=== PATIENT | male | born 1970 | race Caucasian/White ===

== ENCOUNTER 2019-01-14 16:43 | Inpatient (IN) ==
[2019-01-14] MEDS ORDERED: Mag Hydrox/Al Hydrox/Simeth 30 ML UDC PO PRN (18:39)
[2019-01-14] MEDS ORDERED: Nitroglycerin 0.4 MG TAB.SUBL SL PRN (18:39)
[2019-01-14] MEDS ORDERED: *HR* OxyCODONE/APAP 5/325 TABLET PO PRN (18:39)
[2019-01-14] MEDS ORDERED: traZODone 50 MG TABLET PO PRN (20:00)
[2019-01-14] MEDS: Budesonide/Formoterol 80/4.5 MDI IH SCH (20:34)
[2019-01-14] MEDS: Gabapentin 400 MG CAPSULE PO SCH (21:51)
[2019-01-14] MEDS: Methocarbamol 500 MG TABLET PO SCH (22:01)
[2019-01-14] MEDS: Ipratropium/Albuterol Neb 3 ML IH SCH (23:30)
[2019-01-15] MEDS: *HR* OxyCODONE/APAP 5/325 TABLET PO PRN ×4 (02:48→16:46)
[2019-01-15] MEDS: Ipratropium/Albuterol Neb 3 ML IH SCH (05:28)
[2019-01-15 07:50] LABS: Basophils % 0.5 %; Eosinophils # 0.1 K/mcL (0.0-0.6); Eosinophils % 1.6 %; Hematocrit 39.6 % (37.5-50.1); Hemoglobin 13.4 g/dL (12.9-16.9); Immature Granulocytes % 0.5 % (0-4); Lymphocytes # 1.2 K/mcL (0.6-4.6); Lymphocytes % 20.9 %; Mean Corpuscular HGB Conc 33.8 g/dL (31.6-35.5); Mean Corpuscular Hemoglobin 31.5 pg (28.0-33.3); Mean Platelet Volume 10.2 fL (9.4-12.4); Monocytes # 0.5 K/mcL (0.0-1.3); Monocytes % 9.2 %; Neutrophils # 3.9 K/mcL (1.6-8.9); Platelet Count 170 K/mcL (140-400); Red Blood Count 4.26 M/mcL (4.19-5.50); Red Cell Distribution Width 14.3 % (11.5-14.5); Segmented Neutrophils % 67.3 %
[2019-01-15 07:59] LABS: INR 1.2; Prothrombin Time 13.8 Seconds (9.4-12.1)
[2019-01-15] MEDS ORDERED: Tiotropium 18 MCG inhalation IH SCH (08:00)
[2019-01-15] MEDS ORDERED: Multivit/Ca/Min/Fe/FA 1 TAB TABLET PO SCH (08:00)
[2019-01-15] MEDS ORDERED: Iron Polysaccharide Complex 150 MG CAPSULE PO SCH (08:00)
[2019-01-15] MEDS ORDERED: Aspirin Enteric Coated 81 MG Tablet PO SCH (08:00)
[2019-01-15] MEDS ORDERED: Sucralfate 1 GM TABLET PO SCH (08:00)
[2019-01-15] MEDS ORDERED: Folic Acid 1 MG TABLET PO SCH (08:00)
[2019-01-15] MEDS ORDERED: Furosemide 20 MG TABLET PO SCH (08:00)
[2019-01-15] MEDS ORDERED: (Fluticasone/Vilanterol [Breo Ellipta 100-25 Mcg Inh] PO SCH (08:00)
[2019-01-15] MEDS: Gabapentin 400 MG CAPSULE PO SCH ×3 (08:15→16:45)
[2019-01-15] MEDS: Budesonide/Formoterol 80/4.5 MDI IH SCH ×3 (08:16→22:30)
[2019-01-15] MEDS: Methocarbamol 500 MG TABLET PO SCH ×4 (08:16→21:12)
[2019-01-15] MEDS: Sucralfate 1 GM TABLET PO SCH ×2 (08:29→16:46)
[2019-01-15] MEDS: Iron Polysaccharide Complex 150 MG CAPSULE PO SCH (08:29)
[2019-01-15] MEDS: Aspirin Enteric Coated 81 MG Tablet PO SCH (08:29)
[2019-01-15] MEDS: Furosemide 20 MG TABLET PO SCH (08:30)
[2019-01-15] MEDS: Folic Acid 1 MG TABLET PO SCH (08:30)
[2019-01-15] MEDS ORDERED: traZODone 50 MG TABLET PO PRN (08:30)
[2019-01-15] MEDS: Multivit/Ca/Min/Fe/FA 1 TAB TABLET PO SCH (08:31)
[2019-01-15 08:42] LABS: BUN/Creatinine Ratio 14 (6-26); Blood Urea Nitrogen 13 mg/dL (6-20); Calcium 9.2 mg/dL (8.6-10.3); Carbon Dioxide 28 mEq/L (23-29); Chloride 102 mEq/L (98-107); Glucose 101 mg/dL (70-105); Osmolality,Calculated 282 (280-300); Potassium 4.2 mEq/L (3.5-5.1); Sodium 136 mEq/L (136-145); eGFR For Non-African Americans > 60 (> 60)
[2019-01-15] MEDS: Tiotropium 18 MCG inhalation IH SCH (11:28)
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
[2019-01-15] MEDS: *HR* OxyCODONE ER (12 HR) 10 MG TABLET PO SCH (18:34)
[2019-01-15] MEDS: Gabapentin 300 MG CAPSULE PO SCH (21:11)
[2019-01-16] MEDS: *HR* OxyCODONE ER (12 HR) 10 MG TABLET PO SCH ×4 (00:11→23:46)
[2019-01-16] MEDS: Sucralfate 1 GM TABLET PO SCH ×2 (08:10→16:29)
[2019-01-16] MEDS: Aspirin Enteric Coated 81 MG Tablet PO SCH (08:11)
[2019-01-16] MEDS: Iron Polysaccharide Complex 150 MG CAPSULE PO SCH (08:11)
[2019-01-16] MEDS: Methocarbamol 500 MG TABLET PO SCH ×3 (08:12→20:16)
[2019-01-16] MEDS: Folic Acid 1 MG TABLET PO SCH (08:12)
[2019-01-16] MEDS: Multivit/Ca/Min/Fe/FA 1 TAB TABLET PO SCH (08:12)
[2019-01-16] MEDS: Gabapentin 300 MG CAPSULE PO SCH ×3 (08:12→20:16)
[2019-01-16] MEDS: Furosemide 20 MG TABLET PO SCH (08:12)
[2019-01-16 09:14] LABS: Uric Acid 6.2 mg/dL (2.3-7.6)
[2019-01-16 09:53] LABS: Folate 11.8 ng/mL (3.0-16.0)
[2019-01-16 09:54] LABS: Hepatitis B Surface Antigen Nonreactive (Nonreactive)
[2019-01-16 10:22] LABS: Hepatitis C Virus Antibody Nonreactive (Nonreactive)
[2019-01-16 10:23] LABS: Hepatitis B Core IgM Nonreactive (Nonreactive)
[2019-01-16 10:25] LABS: Hepatitis A Antibody IgM Nonreactive (Nonreactive)
--- NOTE | 2019-01-16 11:12 | Internal Med Progress Note ---
Date of Encounter: 01/16/19 Time of Encounter: 11:00 - Assessment and plan (1) Hematoma of abdominal wall Current Visit: No Status: Acute Assessment and plan: January 16. He agrees to restart Coumadin. Factor V Leiden deficiency result pending Qualifiers: Encounter type: initial encounter Qualified Code(s): S30.1XXA - Contusion of abdominal wall, initial encounter (2) Cirrhosis Current Visit: Yes Status: Acute Assessment and plan: January 16. Hepatitis ABC profile negative. Continue to monitor labs. Qualifiers: Hepatic cirrhosis type: unspecified hepatic cirrhosis Ascites presence: without ascites Qualified Code(s): K74.60 - Unspecified cirrhosis of liver (3) RLS (restless legs syndrome) Current Visit: Yes Status: Acute Assessment and plan: January 16. Iron profile showed iron 65, transferrin saturation 17 %, transferrin 266, and ferritin 39. Will start trial of ferrous sulfate with ascorbic acid in a.m. Continue lower dose gabapentin (4) Hyperuricemia Current Visit: Yes Status: Acute Assessment and plan: January 16. Uric acid level normal at 6.2. (5) DVT (deep venous thrombosis) Current Visit: No Status: Acute Assessment and plan: January 16. Restart Coumadin. Qualifiers: DVT location: lower extremity Affected thrombotic vein of extremity: unspecified vein of extremity Chronicity: unspecified Laterality: unspecified laterality Qualified Code(s): I82.409 - Acute embolism and thrombosis of unspecified deep veins of unspecified lower extremity (6) Atrial fibrillation Current Visit: No Status: Chronic Assessment and plan: January 16. Restart Coumadin. Qualifiers: Atrial fibrillation type: paroxysmal Qualified Code(s): I48.0 - Paroxysmal atrial fibrillation - Subjective Interval history: January 16. He has no new complaints. He states he is in less pain since changing from oxycodone IR to OxyContin. - Constitutional Vitals: Temp Pulse Resp BP Pulse Ox 98.6 F 77 16 134/85 99 01/16/19 07:02 01/16/19 07:02 01/16/19 07:02 01/16/19 07:02 01/16/19 07:02 Exam: He is resting comfortably on the side of bed and appears in no acute distress. His affect is cheerful. I reviewed his medications and lab results. Internal Medicine: Result - Labs CBC & Chem 7: 01/15/19 07:31 01/15/19 07:31 - ABG Interpretation ABG results: PT/INR, D-dimer PT 13.8 Seconds (9.4-12.1) H 01/15/19 07:31 Consult Discharge Plan - Plan Referrals: Carlos Ward DO [Primary Care Provider] - 1 week
[2019-01-16] MEDS: Budesonide/Formoterol 80/4.5 MDI IH SCH ×2 (11:30→22:35)
[2019-01-16] MEDS: Tiotropium 18 MCG inhalation IH SCH (11:30)
[2019-01-16] MEDS: *HR* Warfarin 5 MG TABLET PO SCH (16:29)
[2019-01-16] MEDS ORDERED: Ondansetron ODT 4 MG TAB.RAPDIS SL PRN (16:38)
[2019-01-17] MEDS: Ascorbic Acid 500 MG TABLET PO SCH (06:22)
[2019-01-17] MEDS: *HR* OxyCODONE ER (12 HR) 10 MG TABLET PO SCH ×3 (08:46→23:47)
[2019-01-17] MEDS: Sucralfate 1 GM TABLET PO SCH ×2 (08:46→16:33)
[2019-01-17] MEDS: Gabapentin 300 MG CAPSULE PO SCH ×3 (08:47→20:38)
[2019-01-17] MEDS: Folic Acid 1 MG TABLET PO SCH (08:47)
[2019-01-17] MEDS: Aspirin Enteric Coated 81 MG Tablet PO SCH (08:47)
[2019-01-17] MEDS: Methocarbamol 500 MG TABLET PO SCH ×3 (08:48→20:37)
[2019-01-17] MEDS: Multivit/Ca/Min/Fe/FA 1 TAB TABLET PO SCH (08:48)
[2019-01-17] MEDS: Budesonide/Formoterol 80/4.5 MDI IH SCH ×2 (09:51→22:42)
[2019-01-17] MEDS: Tiotropium 18 MCG inhalation IH SCH (09:53)
--- NOTE | 2019-01-17 15:12 | Discharge Summary ---
Orders not resulted at time of discharge: Pending orders 01/16/19 07:35 Factor V Leiden Routine Date of Encounter: 01/17/19 Time of Encounter: 14:54 - Discharge Diagnosis (1) Hematoma of abdominal wall Priority: Primary Status: Acute Qualifiers: Encounter type: initial encounter Qualified Code(s): S30.1XXA - Contusion of abdominal wall, initial encounter (2) Cirrhosis Priority: Secondary Status: Chronic Qualifiers: Hepatic cirrhosis type: unspecified hepatic cirrhosis Ascites presence: without ascites Qualified Code(s): K74.60 - Unspecified cirrhosis of liver (3) RLS (restless legs syndrome) Priority: Secondary Status: Chronic (4) Hyperuricemia Priority: Secondary Status: Resolved (5) DVT (deep venous thrombosis) Priority: Secondary Status: Acute Qualifiers: DVT location: lower extremity Affected thrombotic vein of extremity: unspecified vein of extremity Chronicity: unspecified Laterality: unspecified laterality Qualified Code(s): I82.409 - Acute embolism and thrombosis of unspecified deep veins of unspecified lower extremity (6) Atrial fibrillation Priority: Secondary Status: Chronic Qualifiers: Atrial fibrillation type: paroxysmal Qualified Code(s): I48.0 - Paroxysmal atrial fibrillation Hospital course: Mr. Haile is a 49 year old male who was hospitalized at [facility] January 05- after presenting with chest and abdominal pain. Abdominal/pelvic CT scan 01/06/2019 showed 12.3 x 5.3 x 3.5 cm left rectus sheath hematoma. Abdominal ultrasound the following day showed similar size 10.5 x 2.5 x 4.6 cm fluid collection. He was seen by surgeons who felt Coumadin can be restarted for diagnoses of atrial fibrillation, history of DVT, and possible factor V Leiden deficiency. The hannah calixto declined restarting Coumadin at that time because of fear of further hemorrhage into the rectus muscle. There was delay in insurance approval to return to [facility] in [place]. He was admitted to [facility] swing bed for ongoing care needs. I saw him on January 15 and performed a swing bed history and physical. I discussed with him the importance of being on OAC. He agreed to start Coumadin. Factor V Leiden was ordered with results pending at time of discharge. He should remain on lifelong Coumadin. His PCP can monitor INR. Hepatitis profile for hepatitis A, B, and C returned negative. The etiology of his cirrhosis is not known. Gabapentin dose was reduced and Cymbalta was started for treatment of RLS. He had decreased edema on reduced dose gabapentin. Iron profile returned showing iron 65, transferrin saturation 17%, transferrin 266, and ferritin 39. B12 and folate were normal at 283 and 11.8 respectively. He was started on ferrous sulfate with ascorbic acid. His PCP can order MMA to further determine his B12 status. Vitamin D level returned low at 27. He will be started on a vitamin D supplement. Uric acid level returned normal at 6.2. Oxycodone IR/Percocet were discontinued and he was started on OxyContin 10 mg every 8 hours. This seemed to improve his pain control. He will remain on this dose at discharge. On January 17 word was received that Medicaid had approved his return to [facility] for ongoing care needs. He will be discharged there in follow with Dr. Massey. - Time Spent with Patient Total time spent providing and/or coordinating discharge services: - Discharge Medications Prescriptions: New Penicillin VK 500 mg PO Q6HR 5 Days tablet OxyCODONE ER (12 HR) [OxyCONTIN] 10 mg PO Q8HR 7 Days #21 tab.er.12h Ascorbic Acid [Vitamin C] 500 mg PO DAILY@0630 tablet DULoxetine [Cymbalta] 30 mg PO DAILY capsule. Ferrous Sulfate 325 mg PO DAILY@0630 tablet Gabapentin [Neurontin] 400 mg PO TID 30 Days #90 capsule Warfarin [Coumadin] 7.5 mg PO DAILY@1800 tablet Omeprazole [PriLOSEC] 20 mg PO BIDAC capsule. Cholecalciferol (D-3) [Vitamin D] 1,000 unit PO DAILY 365 Days tablet Continue Aspirin [Lo-Dose Aspirin EC] 81 mg PO 0800 Tamsulosin [Flomax] 0.4 mg PO 0800 Nitroglycerin [Nitrostat] 0.4 mg SL Q5MIN PRN PRN Reason: Chest Pain Methocarbamol [Robaxin] 500 mg PO 0800,1600,2000 Metoprolol [Lopressor] 50 mg PO 0800,2000 Lidocaine Patch [Lidoderm 5% patch] 1 patch TP 2000 PRN PRN Reason: Mild Pain Folic Acid 0.8 mg PO 0800 Trazodone HCl 50 mg PO 2000 PRN PRN Reason: Sleep Nortriptyline [Pamelor] 10 mg PO 2000 Fluticasone/Vilanterol [Breo Ellipta 100-25 Mcg INH] 25 mcg PO 0800 Tiotropium [Spiriva] 1 puff IH 0800 Sucralfate [Carafate] 1 gm PO 0800,1600 Polyethylene Glycol 3350 [MiraLAX] 17 gm PO 1600 PRN PRN Reason: Constipation Mag Hydrox/Aluminum Hyd/Simeth [Cvs Antacid Plus Anti-Gas Liq] 15 ml PO Q4H PRN PRN Reason: Heartburn HydrOXYzine 10 mg PO TID PRN PRN Reason: Anxiety Albuterol Sulfate [Proair Respiclick] 2 puff IH Q4H PRN PRN Reason: Dyspnea Atorvastatin [Lipitor] 40 mg PO 1999 Buspirone HCl [Buspar] 15 mg PO 0800,1599,1999 Fluticasone/Salmeterol [Advair 250-50 Diskus] 1 each IH 0800,1999 Multivitamin [Daily Multiple Vitamin] 1 each PO 0800 Dicyclomine [Bentyl] 10 mg PO QID Buspirone HCl [Buspar] 15 mg PO TID tablet Nortriptyline [Pamelor] 10 mg PO DAILY capsule Docusate [Colace] 100 mg PO BID PRN capsule PRN Reason: CONSTIPATION Changed Furosemide [Lasix] 20 mg PO Q48H #0 Discontinued Omeprazole [PriLOSEC] 40 mg PO 0800,1600 Iron Polysaccharide Complex [Pro Fe] 180 mg PO 0800 Ipratropium/Albuterol Sulfate [Iprat-Albut 0.5-3(2.5) mg/3 ml] 3 ml IH 0500,1100,1700,2300 Gabapentin [Neurontin] 800 mg PO 0800,1600,1999 Oseltamivir [Tamiflu] 75 mg PO 1600 OxyCODONE/APAP 5/325 [Percocet 5/325 MG] 1 each PO Q6H PRN PRN Reason: Pain Home Medications: Aspirin [Lo-Dose Aspirin EC] 81 mg PO 0800 03/22/17 [History] Methocarbamol [Robaxin] 500 mg PO 0800,1600,199906/03/18 [History] Nitroglycerin [Nitrostat] 0.4 mg SL Q5MIN PRN 06/03/18 [History] Tamsulosin [Flomax] 0.4 mg PO 0800 06/03/18 [History] Lidocaine Patch [Lidoderm 5% patch] 1 patch TP 1999 PRN 06/04/18 [History] Metoprolol [Lopressor] 50 mg PO 0800,199906/04/18 [History] Folic Acid 0.8 mg PO 0800 11/02/18 [History] Trazodone HCl 50 mg PO 1999 PRN 11/02/18 [History] Nortriptyline [Pamelor] 10 mg PO 199912/14/18 [History] Fluticasone/Vilanterol [Breo Ellipta 100-25 Mcg INH] 25 mcg PO 0800 01/06/19 [History] HydrOXYzine 10 mg PO TID PRN 01/06/19 [History] Mag Hydrox/Aluminum Hyd/Simeth [Cvs Antacid Plus Anti-Gas Liq] 15 ml PO Q4H PRN 01/06/19 [History] Polyethylene Glycol 3350 [MiraLAX] 17 gm PO 1600 PRN 01/06/19 [History] Sucralfate [Carafate] 1 gm PO 0800,1600 01/06/19 [History] Tiotropium [Spiriva] 1 puff IH 0800 01/06/19 [History] Albuterol Sulfate [Proair Respiclick] 2 puff IH Q4H PRN 01/07/19 [History] Atorvastatin [Lipitor] 40 mg PO 199901/07/19 [History] Buspirone HCl [Buspar] 15 mg PO 0800,1600,199901/07/19 [History] Dicyclomine [Bentyl] 10 mg PO QID 01/07/19 [History] Fluticasone/Salmeterol [Advair 250-50 Diskus] 1 each IH 0800,199901/07/19 [History] Multivitamin [Daily Multiple Vitamin] 1 each PO 0800 01/07/19 [History] Buspirone HCl [Buspar] 15 mg PO TID tablet 01/10/19 [Rx] Docusate [Colace] 100 mg PO BID PRN capsule 01/10/19 [Rx] Nortriptyline [Pamelor] 10 mg PO DAILY capsule 01/10/19 [Rx] Ascorbic Acid [Vitamin C] 500 mg PO DAILY@0630 tablet 01/17/19 [Rx] Cholecalciferol (D-3) [Vitamin D] 1,000 unit PO DAILY 365 Days tablet 01/17/19 [Rx] DULoxetine [Cymbalta] 30 mg PO DAILY capsule. 01/17/19 [Rx] Ferrous Sulfate 325 mg PO DAILY@0630 tablet 01/17/19 [Rx] Furosemide [Lasix] 20 mg PO Q48H #0 01/17/19 [Rx] Gabapentin [Neurontin] 400 mg PO TID 30 Days #90 capsule 01/17/19 [Rx] Omeprazole [PriLOSEC] 20 mg PO BIDAC capsule. 01/17/19 [Rx] OxyCODONE ER (12 HR) [OxyCONTIN] 10 mg PO Q8HR 7 Days #21 tab.er.12h 01/17/19 [Rx] Penicillin VK 500 mg PO Q6HR 5 Days tablet 01/17/19 [Rx] Warfarin [Coumadin] 7.5 mg PO DAILY@1800 tablet 01/17/19 [Rx] Allergies/Adverse Reactions: Allergy/AdvReac Type Severity Reaction Status Date / Time acetaminophen [From Tylenol] Allergy See Verified 01/07/19 09:27 Comments ibuprofen Allergy See Verified 01/07/19 09:27 Comments vancomycin Allergy "REDMEN Verified 01/07/19 09:21 SYNDROME" amitriptyline [From Elavil] AdvReac "KNOCKED Verified 01/07/19 09:21 OUT" baclofen AdvReac Headache Verified 01/07/19 09:21 tramadol [From Ultram] AdvReac Itching, Verified 01/07/19 09:21 RED HIVES venlafaxine [From Effexor] AdvReac NIGHTMARES Verified 01/07/19 09:21 Date of admission: 01/14/19 18:35 Primary care physician: Carlos Ward DO Consults: 01/14/19 16:46 Consult to Cardiac Exercise Physiologist [CONS] Routine Reason for SW Consult: discharge planning 01/14/19 16:49 Consult to Physical Therapy [CONS] Routine Comment: Evaluate, develop and implement POC Reason for Consult: weakness Does patient have active BEDREST order?: No Is patient medically & hemodynamically stable?: Yes Patient assessed for mobility or mobilized this visit?: No OT [Consult to Occupational Therapy] [CONS] Routine Comment: Evaluate, develop and implement POC Reason for Consult: weakness Does patient have active BEDREST order?: No Is patient medically & hemodynamically stable?: Yes Patient assessed for mobility or mobilized this visit?: No - Constitutional Vitals: Temp Pulse Resp BP Pulse Ox 98.2 F 71 16 103/65 91 01/17/19 07:25 01/17/19 07:25 01/17/19 09:51 01/17/19 07:25 01/17/19 09:51 - Patient Status Disposition: Transfer SNF - Discharge Instructions - Diet and Activity Activity: resume usual activities as tolerated Diet: advance to your usual diet
--- NOTE | 2019-01-17 15:24 | Physician Discharge Referral ---
[facility] Referral Info Transfer To: [facility] Provider in Charge: Rahat Provider in Charge after Transfer: PCP Ahsan) - Diagnosis (1) Hematoma of abdominal wall Priority: Primary Status: Acute (2) Cirrhosis Priority: Secondary Status: Chronic (3) RLS (restless legs syndrome) Priority: Secondary Status: Chronic (4) Hyperuricemia Priority: Secondary Status: Resolved (5) DVT (deep venous thrombosis) Priority: Secondary Status: Acute (6) Atrial fibrillation Priority: Secondary Status: Chronic Prognosis: Good Aware of Diagnosis: Patient Aware of Prognosis: Patient - Transfer Medications Prescriptions: OxyCODONE ER (12 HR) [OxyCONTIN] 10 mg PO Q8HR 7 Days #21 tab.er.12h Cholecalciferol (D-3) [Vitamin D] 1,000 unit PO DAILY 365 Days tablet Gabapentin [Neurontin] 400 mg PO TID 30 Days #90 capsule Home Medications: Aspirin [Lo-Dose Aspirin EC] 81 mg PO 0800 03/22/17 [History] Methocarbamol [Robaxin] 500 mg PO 0800,1600,199906/03/18 [History] Nitroglycerin [Nitrostat] 0.4 mg SL Q5MIN PRN 06/03/18 [History] Tamsulosin [Flomax] 0.4 mg PO 0800 06/03/18 [History] Lidocaine Patch [Lidoderm 5% patch] 1 patch TP 1999 PRN 06/04/18 [History] Metoprolol [Lopressor] 50 mg PO 0800,199906/04/18 [History] Folic Acid 0.8 mg PO 0800 11/02/18 [History] Trazodone HCl 50 mg PO 1999 PRN 11/02/18 [History] Nortriptyline [Pamelor] 10 mg PO 199912/14/18 [History] Fluticasone/Vilanterol [Breo Ellipta 100-25 Mcg INH] 25 mcg PO 0800 01/06/19 [History] HydrOXYzine 10 mg PO TID PRN 01/06/19 [History] Mag Hydrox/Aluminum Hyd/Simeth [Cvs Antacid Plus Anti-Gas Liq] 15 ml PO Q4H PRN 01/06/19 [History] Polyethylene Glycol 3350 [MiraLAX] 17 gm PO 1600 PRN 01/06/19 [History] Sucralfate [Carafate] 1 gm PO 0800,1600 01/06/19 [History] Tiotropium [Spiriva] 1 puff IH 0800 01/06/19 [History] Albuterol Sulfate [Proair Respiclick] 2 puff IH Q4H PRN 01/07/19 [History] Atorvastatin [Lipitor] 40 mg PO 199901/07/19 [History] Buspirone HCl [Buspar] 15 mg PO 0800,1600,199901/07/19 [History] Dicyclomine [Bentyl] 10 mg PO QID 01/07/19 [History] Fluticasone/Salmeterol [Advair 250-50 Diskus] 1 each IH 0800,199901/07/19 [History] Multivitamin [Daily Multiple Vitamin] 1 each PO 0800 01/07/19 [History] Buspirone HCl [Buspar] 15 mg PO TID tablet 01/10/19 [Rx] Docusate [Colace] 100 mg PO BID PRN capsule 01/10/19 [Rx] Nortriptyline [Pamelor] 10 mg PO DAILY capsule 01/10/19 [Rx] Ascorbic Acid [Vitamin C] 500 mg PO DAILY@0630 tablet 01/17/19 [Rx] Cholecalciferol (D-3) [Vitamin D] 1,000 unit PO DAILY 365 Days tablet 01/17/19 [Rx] DULoxetine [Cymbalta] 30 mg PO DAILY capsule. 01/17/19 [Rx] Ferrous Sulfate 325 mg PO DAILY@0630 tablet 01/17/19 [Rx] Furosemide [Lasix] 20 mg PO Q48H #0 01/17/19 [Rx] Gabapentin [Neurontin] 400 mg PO TID 30 Days #90 capsule 01/17/19 [Rx] Omeprazole [PriLOSEC] 20 mg PO BIDAC capsule. 01/17/19 [Rx] OxyCODONE ER (12 HR) [OxyCONTIN] 10 mg PO Q8HR 7 Days #21 tab.er.12h 01/17/19 [Rx] Penicillin VK 500 mg PO Q6HR 5 Days tablet 01/17/19 [Rx] Warfarin [Coumadin] 7.5 mg PO DAILY@1800 tablet 01/17/19 [Rx] Allergies/Adverse Reactions: Allergy/AdvReac Type Severity Reaction Status Date / Time acetaminophen [From Tylenol] Allergy See Verified 01/07/19 09:27 Comments ibuprofen Allergy See Verified 01/07/19 09:27 Comments vancomycin Allergy "REDMEN Verified 01/07/19 09:21 SYNDROME" amitriptyline [From Elavil] AdvReac "KNOCKED Verified 01/07/19 09:21 OUT" baclofen AdvReac Headache Verified 01/07/19 09:21 tramadol [From Ultram] AdvReac Itching, Verified 01/07/19 09:21 RED HIVES venlafaxine [From Effexor] AdvReac NIGHTMARES Verified 01/07/19 09:21 - Respiratory Orders Smoking Cessation: Smoking cessation has been advised. For more information, call the [employer] Quit Line at 1-330-GEVD-NOW. - Lab Orders Lab Orders: Other (include drug levels w/frequency) (CBC with differential, BMP, BNP peptide, PT/INR in a.m. 01/19/19) - Rehabiliation Orders Rehab Orders: Evaluation for Physical Therapy, Evaluation for Occupational Therapy - Diet Orders Cardiac CERTIFICATION: I certify that the transfer of the above named patient to an Extended Care Facility is necessary for the continuing treatment of the diagnosis listed. The above information is true and accurate reflection of patient's current condition. Confidential - Redisclosure prohibited without a patient's written consent.
[2019-01-17] MEDS: *HR* Warfarin 5 MG TABLET PO SCH (16:33)
[2019-01-18] MEDS: Ascorbic Acid 500 MG TABLET PO SCH (06:17)
[2019-01-18 06:58] VITALS: BP 127/69
[2019-01-18] MEDS: *HR* OxyCODONE ER (12 HR) 10 MG TABLET PO SCH (08:46)
[2019-01-18] MEDS: Folic Acid 1 MG TABLET PO SCH (08:47)
[2019-01-18] MEDS: Methocarbamol 500 MG TABLET PO SCH (08:47)
[2019-01-18] MEDS: Gabapentin 300 MG CAPSULE PO SCH (08:47)
[2019-01-18] MEDS: Aspirin Enteric Coated 81 MG Tablet PO SCH (08:47)
[2019-01-18] MEDS: Sucralfate 1 GM TABLET PO SCH (08:47)
[2019-01-18] MEDS: Multivit/Ca/Min/Fe/FA 1 TAB TABLET PO SCH (08:47)
[2019-01-18] MEDS: Tiotropium 18 MCG inhalation IH SCH (09:29)
[2019-01-18] MEDS: Budesonide/Formoterol 80/4.5 MDI IH SCH (09:29)
== END 2019-01-18 11:21 | DRG 384 ==
LOC: INPPIK 18:35
PROVIDERS: ADMIT Internal Medicine; ATTEND Internal Medicine

== ENCOUNTER 2021-01-18 22:39 | Inpatient (IN) ==
[2021-01-18] MEDS ORDERED: methylPREDNISolone 125 MG/2 ML VIAL IVP ONE (23:13)
[2021-01-18] MEDS ORDERED: Ipratropium/Albuterol Neb 3 ML IH ONE (23:13)
[2021-01-19 00:02] LABS: Basophils # 0.1 K/mcL (0.0-0.2); Basophils % 0.4 %; Eosinophils # 0.2 K/mcL (0.0-0.6); Eosinophils % 1.2 %; Hematocrit 34.1 % (37.5-50.1); Hemoglobin 11.5 g/dL (12.9-16.9); Immature Granulocytes % 0.7 % (0-4); Lymphocytes # 1.9 K/mcL (0.6-4.6); Lymphocytes % 11.2 %; Mean Corpuscular HGB Conc 33.7 g/dL (31.6-35.5); Mean Corpuscular Hemoglobin 30.7 pg (28.0-33.3); Mean Corpuscular Volume 90.9 fL (83.0-100.0); Mean Platelet Volume 10.6 fL (9.4-12.4); Monocytes # 1.8 K/mcL (0.0-1.3); Monocytes % 10.8 %; Neutrophils # 12.6 K/mcL (1.6-8.9); Platelet Count 155 K/mcL (140-400); Red Blood Count 3.75 M/mcL (4.19-5.50); Red Cell Distribution Width 15.3 % (11.5-14.5); Segmented Neutrophils % 75.7 %; White Blood Count 16.7 K/mcL (4.3-11.1)
[2021-01-19 00:03] LABS: ABG Base Excess 8 mEq/L (-2 to 3); ABG HCO3 35 mEq/L (21-27); ABG Oxygen Saturation 90 % (95-98); ABG PCO2 59 mmHg (35-45); ABG PH 7.38 pH Units (7.32-7.45); ABG PO2 62 mmHg (85-104); ABG TCO2 37 mEq/L (20-26)
[2021-01-19] MEDS ORDERED: Cefepime HCl 2,000 MG in 0.9 % Sodium Chloride Mini Bag 100 ML IVPB STA (00:19)
[2021-01-19] MEDS ORDERED: Azithromycin 500 MG in 0.9 % Sodium Chloride 250 ML IVPB ONE (00:19)
[2021-01-19 00:21] LABS: BUN/Creatinine Ratio 15 (6-26); Blood Urea Nitrogen 13 mg/dL (6-20); Calcium 8.6 mg/dL (8.6-10.3); Carbon Dioxide 34 mEq/L (23-29); Chloride 99 mEq/L (98-107); Glucose 77 mg/dL (70-105); Osmolality,Calculated 289 (280-300); Potassium 3.6 mEq/L (3.5-5.1); Sodium 140 mEq/L (136-145); eGFR For African Americans > 60 (> 60); eGFR For Non-African Americans > 60 (> 60)
[2021-01-19] MEDS ORDERED: Bumetanide 1 MG/4 ML VIAL IVP STA (00:21)
[2021-01-19 00:22] LABS: Troponin I < 0.03 ng/mL (< 0.04)
[2021-01-19] MEDS ORDERED: Naloxone 0.4 MG/ML INJ IVP PRN ×2 (01:38→02:57)
[2021-01-19] MEDS ORDERED: Ondansetron ODT 4 MG TAB.RAPDIS PO PRN ×2 (01:41→02:57)
[2021-01-19] MEDS ORDERED: *HR* Enoxaparin 150 MG/ML SYRINGE SQ SCH ×2 (01:45→13:45)
[2021-01-19] MEDS ORDERED: *HR* OxyCODONE ER (12 HR) 40 MG TABLET PO SCH (05:00)
[2021-01-19] MEDS ORDERED: Ipratropium Neb 0.5 MG NEBULIZER IH SCH ×2 (05:00)
[2021-01-19] MEDS: *HR* OxyCODONE ER (12 HR) 40 MG TABLET PO SCH ×2 (06:07→16:51)
[2021-01-19 07:49] LABS: Basophils % 0.2 %; Hematocrit 33.6 % (37.5-50.1); Hemoglobin 11.1 g/dL (12.9-16.9); Immature Granulocytes % 0.6 % (0-4); Lymphocytes # 0.6 K/mcL (0.6-4.6); Lymphocytes % 5.5 %; Mean Corpuscular Hemoglobin 30.1 pg (28.0-33.3); Mean Corpuscular Volume 91.1 fL (83.0-100.0); Monocytes # 0.2 K/mcL (0.0-1.3); Monocytes % 1.8 %; Platelet Count 133 K/mcL (140-400); Red Blood Count 3.69 M/mcL (4.19-5.50); Red Cell Distribution Width 15.5 % (11.5-14.5); Segmented Neutrophils % 91.9 %; White Blood Count 11.5 K/mcL (4.3-11.1)
[2021-01-19 07:50] LABS: Neutrophils # 10.6 K/mcL (1.6-8.9)
[2021-01-19] MEDS ORDERED: Sucralfate 1 GM TABLET PO SCH (08:00)
[2021-01-19] MEDS ORDERED: *HR* Metformin 500 MG TABLET PO SCH ×2 (08:00)
[2021-01-19 08:11] LABS: BUN/Creatinine Ratio 17 (6-26); Blood Urea Nitrogen 17 mg/dL (6-20); Calcium 8.4 mg/dL (8.6-10.3); Carbon Dioxide 32 mEq/L (23-29); Chloride 99 mEq/L (98-107); Glucose 183 mg/dL (70-105); Osmolality,Calculated 298 (280-300); Platelet Estimate Decreased (Normal); Potassium 3.9 mEq/L (3.5-5.1); Sodium 141 mEq/L (136-145); eGFR For African Americans > 60 (> 60); eGFR For Non-African Americans > 60 (> 60)
[2021-01-19] MEDS: methocarbamoL 500 MG TABLET PO SCH ×2 (08:30→21:00)
[2021-01-19] MEDS: Aspirin Enteric Coated 81 MG Tablet PO SCH (08:30)
[2021-01-19] MEDS: *HR* OxyCODONE Immed Rel 5 MG TABLET PO SCH ×3 (08:30→20:57)
[2021-01-19] MEDS: Gabapentin 300 MG CAPSULE PO SCH ×3 (08:31→20:57)
[2021-01-19] MEDS: Multivit/Ca/Min/Fe/FA 1 TAB TABLET PO SCH (08:31)
[2021-01-19] MEDS: Cholecalciferol (D-3) 1,000 UNIT (25MCG) TABLET PO SCH (08:31)
[2021-01-19] MEDS: Famotidine 20 MG TABLET PO SCH ×2 (08:32→20:57)
[2021-01-19] MEDS: *HR* Glimepiride 2 MG TABLET PO SCH (08:33)
[2021-01-19] MEDS: Sucralfate 1 GM TABLET PO SCH ×2 (08:33→16:51)
[2021-01-19] MEDS: hydrOXYzine pamoate 25 MG CAPSULE PO SCH (08:34)
[2021-01-19] MEDS: Folic Acid 1 MG TABLET PO SCH (08:34)
[2021-01-19] MEDS: Finasteride 5 MG TABLET PO SCH (08:34)
[2021-01-19] MEDS ORDERED: Gabapentin 300 MG CAPSULE PO SCH (09:00)
[2021-01-19] MEDS ORDERED: Aspirin Enteric Coated 81 MG Tablet PO SCH (09:00)
[2021-01-19] MEDS ORDERED: Cholecalciferol (D-3) 1,000 UNIT (25MCG) TABLET PO SCH (09:00)
[2021-01-19] MEDS ORDERED: hydrOXYzine pamoate 25 MG CAPSULE PO SCH (09:00)
[2021-01-19] MEDS ORDERED: Finasteride 5 MG TABLET PO SCH (09:00)
[2021-01-19] MEDS ORDERED: *HR* Glimepiride 2 MG TABLET PO SCH (09:00)
[2021-01-19] MEDS ORDERED: *HR* OxyCODONE Immed Rel 5 MG TABLET PO SCH (09:00)
[2021-01-19] MEDS ORDERED: Folic Acid 1 MG TABLET PO SCH (09:00)
[2021-01-19] MEDS ORDERED: Multivit/Ca/Min/Fe/FA 1 TAB TABLET PO SCH (09:00)
[2021-01-19] MEDS ORDERED: Famotidine 20 MG TABLET PO SCH (09:00)
[2021-01-19] MEDS ORDERED: methocarbamoL 500 MG TABLET PO SCH (09:00)
[2021-01-19 09:31] LABS: ABG Base Excess 5 mEq/L (-2 to 3); ABG HCO3 30 mEq/L (21-27); ABG Oxygen Saturation 89 % (95-98); ABG PCO2 47 mmHg (35-45); ABG PH 7.41 pH Units (7.32-7.45); ABG PO2 58 mmHg (85-104); ABG TCO2 31 mEq/L (20-26)
[2021-01-19] MEDS: Ipratropium Neb 0.5 MG NEBULIZER IH SCH ×2 (09:33→11:34)
[2021-01-19] MEDS: Budesonide/Formoterol 80/4.5 1 PUFF INH IH SCH ×2 (09:34→21:49)
[2021-01-19] MEDS ORDERED: Isovue-370 500 ML BOTTLE IVP ONE (09:59)
[2021-01-19] MEDS ORDERED: Budesonide/Formoterol 80/4.5 1 PUFF INH IH SCH (10:00)
[2021-01-19] MEDS ORDERED: Insulin LISPRO 300 UNITS/3 ML VIAL SUBQ SCH ×2 (11:30→21:00)
[2021-01-19 13:14] LABS: Bilirubin,Urine Negative (Negative); Blood,Urine Negative (Negative); Clarity,Urine Clear (Clear); Color,Urine Yellow (Yellow); Glucose,Urine (UA) Normal (Normal); Ketones,Urine Trace mg/dL (Negative); Leukocyte Esterase,Urine Negative (Negative); Nitrite,Urine Negative (Negative); Protein,Urine Negative (Neg-Trace); Specific Gravity,Urine 1.015 (1.010-1.025); Urobilinogen,Urine Normal (Normal)
[2021-01-19] MEDS: Ipratropium/Albuterol Neb 3 ML IH SCH ×2 (15:27→21:49)
[2021-01-19] MEDS: Insulin LISPRO 300 UNITS/3 ML VIAL SUBQ SCH ×2 (16:53→21:04)
[2021-01-19] MEDS: Bumetanide 1 MG TABLET PO SCH (16:53)
[2021-01-19] MEDS: Azithromycin 500 MG in 0.9 % Sodium Chloride 250 ML IVPB SCH (20:45)
[2021-01-19] MEDS ORDERED: Mirtazapine 15 MG TABLET PO SCH (21:00)
[2021-01-19] MEDS: Mirtazapine 15 MG TABLET PO SCH (21:01)
[2021-01-19] MEDS: cefTRIAXone 1,000 MG in 0.9 % Sodium Chloride Mini Bag 100 ML IVPB SCH (21:03)
[2021-01-20] MEDS: Ipratropium/Albuterol Neb 3 ML IH SCH ×4 (04:10→21:47)
[2021-01-20] MEDS: *HR* Enoxaparin 40 MG/0.4 ML SYRINGE SQ SCH (05:11)
[2021-01-20] MEDS: *HR* OxyCODONE ER (12 HR) 40 MG TABLET PO SCH ×2 (05:11→16:50)
[2021-01-20] MEDS: Insulin LISPRO 300 UNITS/3 ML VIAL SUBQ SCH ×4 (07:23→21:14)
[2021-01-20 07:38] LABS: Hematocrit 31.9 % (37.5-50.1); Hemoglobin 10.5 g/dL (12.9-16.9); Mean Corpuscular HGB Conc 32.9 g/dL (31.6-35.5); Mean Corpuscular Hemoglobin 30.1 pg (28.0-33.3); Mean Corpuscular Volume 91.4 fL (83.0-100.0); Mean Platelet Volume 10.7 fL (9.4-12.4); Platelet Count 121 K/mcL (140-400); Red Blood Count 3.49 M/mcL (4.19-5.50); Red Cell Distribution Width 15.6 % (11.5-14.5); White Blood Count 7.6 K/mcL (4.3-11.1)
[2021-01-20] MEDS: Cholecalciferol (D-3) 1,000 UNIT (25MCG) TABLET PO SCH (07:49)
[2021-01-20] MEDS: Aspirin Enteric Coated 81 MG Tablet PO SCH (07:49)
[2021-01-20] MEDS: Finasteride 5 MG TABLET PO SCH (07:50)
[2021-01-20] MEDS: Folic Acid 1 MG TABLET PO SCH (07:50)
[2021-01-20] MEDS: *HR* Glimepiride 2 MG TABLET PO SCH (07:52)
[2021-01-20] MEDS: Multivit/Ca/Min/Fe/FA 1 TAB TABLET PO SCH (07:52)
[2021-01-20] MEDS: *HR* OxyCODONE Immed Rel 5 MG TABLET PO SCH ×3 (07:55→21:10)
[2021-01-20] MEDS: methocarbamoL 500 MG TABLET PO SCH ×2 (07:55→21:11)
[2021-01-20] MEDS: Gabapentin 300 MG CAPSULE PO SCH ×3 (07:56→21:12)
[2021-01-20] MEDS: Sucralfate 1 GM TABLET PO SCH ×2 (07:56→16:51)
[2021-01-20] MEDS: Famotidine 20 MG TABLET PO SCH ×2 (07:56→21:09)
[2021-01-20] MEDS: Bumetanide 1 MG TABLET PO SCH ×2 (07:59→16:50)
[2021-01-20] MEDS: hydrOXYzine pamoate 25 MG CAPSULE PO SCH (07:59)
[2021-01-20 08:03] LABS: BUN/Creatinine Ratio 25 (6-26); Blood Urea Nitrogen 22 mg/dL (6-20); Calcium 8.2 mg/dL (8.6-10.3); Carbon Dioxide 32 mEq/L (23-29); Chloride 101 mEq/L (98-107); Glucose 86 mg/dL (70-105); Osmolality,Calculated 295 (280-300); Potassium 3.4 mEq/L (3.5-5.1); Sodium 141 mEq/L (136-145); eGFR For African Americans > 60 (> 60); eGFR For Non-African Americans > 60 (> 60)
[2021-01-20] MEDS: Budesonide/Formoterol 80/4.5 1 PUFF INH IH SCH ×2 (09:37→21:54)
[2021-01-20] MEDS: cefTRIAXone 1,000 MG in 0.9 % Sodium Chloride Mini Bag 100 ML IVPB SCH (20:05)
[2021-01-20] MEDS: Azithromycin 500 MG in 0.9 % Sodium Chloride 250 ML IVPB SCH (21:05)
[2021-01-20] MEDS: Mirtazapine 15 MG TABLET PO SCH (21:12)
[2021-01-21] MEDS: Ipratropium/Albuterol Neb 3 ML IH SCH ×4 (04:10→21:16)
[2021-01-21] MEDS: *HR* OxyCODONE ER (12 HR) 40 MG TABLET PO SCH ×2 (05:06→17:33)
[2021-01-21] MEDS: *HR* Enoxaparin 40 MG/0.4 ML SYRINGE SQ SCH (05:06)
[2021-01-21 08:48] LABS: Hematocrit 30.3 % (37.5-50.1); Hemoglobin 10.2 g/dL (12.9-16.9); Mean Corpuscular HGB Conc 33.7 g/dL (31.6-35.5); Mean Corpuscular Hemoglobin 30.9 pg (28.0-33.3); Mean Corpuscular Volume 91.8 fL (83.0-100.0); Mean Platelet Volume 10.6 fL (9.4-12.4); Platelet Count 108 K/mcL (140-400); Red Cell Distribution Width 15.2 % (11.5-14.5); White Blood Count 4.6 K/mcL (4.3-11.1)
[2021-01-21] MEDS: Aspirin Enteric Coated 81 MG Tablet PO SCH (08:53)
[2021-01-21] MEDS: Gabapentin 300 MG CAPSULE PO SCH ×3 (08:53→20:10)
[2021-01-21] MEDS: methocarbamoL 500 MG TABLET PO SCH ×2 (08:53→20:12)
[2021-01-21] MEDS: Sucralfate 1 GM TABLET PO SCH ×2 (08:54→15:36)
[2021-01-21] MEDS: Cholecalciferol (D-3) 1,000 UNIT (25MCG) TABLET PO SCH (08:54)
[2021-01-21] MEDS: Bumetanide 1 MG TABLET PO SCH ×2 (08:54→15:36)
[2021-01-21] MEDS: *HR* OxyCODONE Immed Rel 5 MG TABLET PO SCH ×3 (08:54→21:01)
[2021-01-21] MEDS: hydrOXYzine pamoate 25 MG CAPSULE PO SCH (08:55)
[2021-01-21] MEDS: *HR* Glimepiride 2 MG TABLET PO SCH (08:55)
[2021-01-21] MEDS: Famotidine 20 MG TABLET PO SCH ×2 (08:55→20:10)
[2021-01-21] MEDS: Finasteride 5 MG TABLET PO SCH (08:56)
[2021-01-21] MEDS: Multivit/Ca/Min/Fe/FA 1 TAB TABLET PO SCH (08:56)
[2021-01-21] MEDS: Insulin LISPRO 300 UNITS/3 ML VIAL SUBQ SCH ×4 (08:56→21:02)
[2021-01-21] MEDS: Folic Acid 1 MG TABLET PO SCH (08:56)
[2021-01-21] MEDS: Budesonide/Formoterol 80/4.5 1 PUFF INH IH SCH ×2 (09:16→21:16)
[2021-01-21 09:26] LABS: BUN/Creatinine Ratio 26 (6-26); Blood Urea Nitrogen 18 mg/dL (6-20); Calcium 8.1 mg/dL (8.6-10.3); Carbon Dioxide 32 mEq/L (23-29); Chloride 100 mEq/L (98-107); Glucose 103 mg/dL (70-105); Osmolality,Calculated 286 (280-300); Potassium 3.3 mEq/L (3.5-5.1); Sodium 137 mEq/L (136-145); eGFR For African Americans > 60 (> 60); eGFR For Non-African Americans > 60 (> 60)
[2021-01-21] MEDS ORDERED: MethylPREDNISolone 40 MG/ML VIAL IVP SCH ×2 (11:12→20:00)
[2021-01-21] MEDS: MethylPREDNISolone 40 MG/ML VIAL IVP SCH (20:06)
[2021-01-21] MEDS: cefTRIAXone 1,000 MG in 0.9 % Sodium Chloride Mini Bag 100 ML IVPB SCH (20:07)
[2021-01-21] MEDS: Mirtazapine 15 MG TABLET PO SCH (20:10)
[2021-01-21] MEDS: Azithromycin 500 MG in 0.9 % Sodium Chloride 250 ML IVPB SCH (21:02)
[2021-01-22] MEDS: Ipratropium/Albuterol Neb 3 ML IH SCH ×4 (04:26→22:29)
[2021-01-22] MEDS: *HR* OxyCODONE ER (12 HR) 40 MG TABLET PO SCH ×2 (04:38→17:01)
[2021-01-22] MEDS: MethylPREDNISolone 40 MG/ML VIAL IVP SCH ×2 (04:38→11:53)
[2021-01-22] MEDS: *HR* Enoxaparin 40 MG/0.4 ML SYRINGE SQ SCH (04:38)
[2021-01-22 07:05] LABS: Basophils % 0.1 %; Hematocrit 31.3 % (37.5-50.1); Hemoglobin 10.5 g/dL (12.9-16.9); Immature Granulocytes % 0.7 % (0-4); Lymphocytes # 0.5 K/mcL (0.6-4.6); Lymphocytes % 6.8 %; Mean Corpuscular HGB Conc 33.5 g/dL (31.6-35.5); Mean Corpuscular Hemoglobin 30.3 pg (28.0-33.3); Mean Corpuscular Volume 90.5 fL (83.0-100.0); Monocytes # 0.3 K/mcL (0.0-1.3); Monocytes % 4.6 %; Platelet Count 118 K/mcL (140-400); Red Blood Count 3.46 M/mcL (4.19-5.50); Red Cell Distribution Width 14.8 % (11.5-14.5); Segmented Neutrophils % 87.8 %; White Blood Count 6.8 K/mcL (4.3-11.1)
[2021-01-22 07:42] LABS: BUN/Creatinine Ratio 31 (6-26); Blood Urea Nitrogen 21 mg/dL (6-20); Calcium 8.3 mg/dL (8.6-10.3); Carbon Dioxide 28 mEq/L (23-29); Chloride 101 mEq/L (98-107); Glucose 167 mg/dL (70-105); Osmolality,Calculated 287 (280-300); Potassium 4.3 mEq/L (3.5-5.1); Sodium 135 mEq/L (136-145); eGFR For African Americans > 60 (> 60); eGFR For Non-African Americans > 60 (> 60)
[2021-01-22] MEDS: *HR* OxyCODONE Immed Rel 5 MG TABLET PO SCH ×3 (08:06→20:11)
[2021-01-22] MEDS: methocarbamoL 500 MG TABLET PO SCH ×2 (08:07→20:13)
[2021-01-22] MEDS: Folic Acid 1 MG TABLET PO SCH (08:07)
[2021-01-22] MEDS: Bumetanide 1 MG TABLET PO SCH ×2 (08:07→17:01)
[2021-01-22] MEDS: Finasteride 5 MG TABLET PO SCH (08:08)
[2021-01-22] MEDS: Sucralfate 1 GM TABLET PO SCH ×2 (08:08→17:01)
[2021-01-22] MEDS: hydrOXYzine pamoate 25 MG CAPSULE PO SCH (08:08)
[2021-01-22] MEDS: Famotidine 20 MG TABLET PO SCH ×2 (08:08→20:11)
[2021-01-22] MEDS: Gabapentin 300 MG CAPSULE PO SCH ×3 (08:09→20:11)
[2021-01-22] MEDS: Multivit/Ca/Min/Fe/FA 1 TAB TABLET PO SCH (08:09)
[2021-01-22] MEDS: Aspirin Enteric Coated 81 MG Tablet PO SCH (08:10)
[2021-01-22] MEDS: *HR* Glimepiride 2 MG TABLET PO SCH (08:10)
[2021-01-22] MEDS: Cholecalciferol (D-3) 1,000 UNIT (25MCG) TABLET PO SCH (08:10)
[2021-01-22] MEDS: Insulin LISPRO 300 UNITS/3 ML VIAL SUBQ SCH ×4 (08:16→22:10)
[2021-01-22] MEDS: Budesonide/Formoterol 80/4.5 1 PUFF INH IH SCH ×2 (09:55→22:30)
[2021-01-22] MEDS: Mirtazapine 15 MG TABLET PO SCH (20:11)
[2021-01-22] MEDS: cefTRIAXone 1,000 MG in 0.9 % Sodium Chloride Mini Bag 100 ML IVPB SCH (20:14)
[2021-01-22] MEDS: Azithromycin 500 MG in 0.9 % Sodium Chloride 250 ML IVPB SCH (20:16)
[2021-01-23] MEDS: Ipratropium/Albuterol Neb 3 ML IH SCH ×2 (03:30→10:12)
[2021-01-23] MEDS: *HR* OxyCODONE ER (12 HR) 40 MG TABLET PO SCH (05:17)
[2021-01-23] MEDS: *HR* Enoxaparin 40 MG/0.4 ML SYRINGE SQ SCH (05:17)
[2021-01-23] MEDS: Insulin LISPRO 300 UNITS/3 ML VIAL SUBQ SCH ×2 (07:33→11:25)
[2021-01-23 08:55] VITALS: BP 121/65
[2021-01-23] MEDS: Sucralfate 1 GM TABLET PO SCH (08:55)
[2021-01-23] MEDS: Aspirin Enteric Coated 81 MG Tablet PO SCH (08:55)
[2021-01-23] MEDS: Famotidine 20 MG TABLET PO SCH (08:56)
[2021-01-23] MEDS: Cholecalciferol (D-3) 1,000 UNIT (25MCG) TABLET PO SCH (08:56)
[2021-01-23] MEDS: Gabapentin 300 MG CAPSULE PO SCH (08:57)
[2021-01-23] MEDS: *HR* Glimepiride 2 MG TABLET PO SCH (08:57)
[2021-01-23] MEDS: *HR* OxyCODONE Immed Rel 5 MG TABLET PO SCH (08:57)
[2021-01-23] MEDS: hydrOXYzine pamoate 25 MG CAPSULE PO SCH (08:57)
[2021-01-23] MEDS: methocarbamoL 500 MG TABLET PO SCH (08:58)
[2021-01-23] MEDS: Finasteride 5 MG TABLET PO SCH (08:58)
[2021-01-23] MEDS: Folic Acid 1 MG TABLET PO SCH (08:58)
[2021-01-23] MEDS: Multivit/Ca/Min/Fe/FA 1 TAB TABLET PO SCH (08:58)
[2021-01-23] MEDS: Bumetanide 1 MG TABLET PO SCH (08:58)
[2021-01-23] MEDS: Budesonide/Formoterol 80/4.5 1 PUFF INH IH SCH (10:13)
== END 2021-01-23 11:39 | DRG 133 ==
LOC: INPPIK 22:39 → EMEROOPIK 22:39 → INPPIK 01-19 02:40
PROVIDERS: ADMIT Family Medicine; ATTEND Family Medicine

== ENCOUNTER 2021-02-02 22:45 | Observation (INO) ==
[2021-02-02] MEDS ORDERED: methylPREDNISolone 125 MG/2 ML VIAL IVP ONE (22:51)
[2021-02-02] MEDS ORDERED: Ipratropium/Albuterol Neb 3 ML IH ONE (22:51)
[2021-02-02 23:15] LABS: ABG Base Excess 3 mEq/L (-2 to 3); ABG HCO3 31 mEq/L (21-27); ABG Oxygen Saturation 89 % (95-98); ABG PCO2 58 mmHg (35-45); ABG PH 7.34 pH Units (7.32-7.45); ABG PO2 61 mmHg (85-104); ABG TCO2 32 mEq/L (20-26)
[2021-02-02] MEDS ORDERED: cefTRIAXone 2,000 MG in 0.9 % Sodium Chloride Mini Bag 100 ML IVPB ONE (23:20)
[2021-02-02] MEDS ORDERED: Azithromycin 500 MG in 0.9 % Sodium Chloride 250 ML IVPB ONE (23:20)
[2021-02-02 23:25] LABS: Basophils # 0.1 K/mcL (0.0-0.2); Basophils % 0.3 %; Eosinophils # 0.1 K/mcL (0.0-0.6); Eosinophils % 0.5 %; Hematocrit 35.9 % (37.5-50.1); Hemoglobin 11.5 g/dL (12.9-16.9); Immature Granulocytes % 0.6 % (0-4); Lymphocytes # 1.5 K/mcL (0.6-4.6); Lymphocytes % 8.3 %; Mean Corpuscular Hemoglobin 29.9 pg (28.0-33.3); Mean Corpuscular Volume 93.5 fL (83.0-100.0); Mean Platelet Volume 10.7 fL (9.4-12.4); Monocytes # 1.4 K/mcL (0.0-1.3); Monocytes % 7.9 %; Platelet Count 123 K/mcL (140-400); Red Blood Count 3.84 M/mcL (4.19-5.50); Red Cell Distribution Width 15.9 % (11.5-14.5); Segmented Neutrophils % 82.4 %; White Blood Count 17.5 K/mcL (4.3-11.1)
[2021-02-02 23:34] LABS: INR 1.4; Prothrombin Time 16.4 Seconds (9.4-12.1)
[2021-02-02 23:36] LABS: Activated Partial Thrombo Time 39.1 Seconds (26.0-36.0)
[2021-02-02 23:45] LABS: Troponin I < 0.03 ng/mL (< 0.04)
[2021-02-02 23:46] LABS: Neutrophils # 14.4 K/mcL (1.6-8.9)
[2021-02-03 00:02] LABS: Alanine Aminotransferase 21 Units/L (7-52); Albumin/Globulin Ratio 0.7 (1.1-2.2); Alkaline Phosphatase 66 Units/L (34-104); Aspartate Amino Transferase 35 Units/L (13-39); BUN/Creatinine Ratio 20 (6-26); Bilirubin,Direct 0.2 mg/dL (0.0-0.2); Bilirubin,Indirect 0.4 mg/dL (0.0-1.0); Bilirubin,Total 0.6 mg/dL (0.3-1.0); Blood Urea Nitrogen 26 mg/dL (6-20); Carbon Dioxide 31 mEq/L (23-29); Chloride 99 mEq/L (98-107); Globulin 4.2 g/dL (2.4-3.5); Glucose 147 mg/dL (70-105); Osmolality,Calculated 295 (280-300); Potassium 4.1 mEq/L (3.5-5.1); Sodium 139 mEq/L (136-145); Total Protein 7.2 g/dL (6.4-8.9); eGFR For African Americans > 60 (> 60); eGFR For Non-African Americans 58 (> 60)
[2021-02-03] MEDS ORDERED: 0.9 % Sodium Chloride 1,000 ML IVC SCH ×2 (00:15→01:44)
[2021-02-03] MEDS ORDERED: Albuterol 2.5 MG/3 ML NEBULIZER IH PRN (01:44)
[2021-02-03] MEDS ORDERED: hydrOXYzine pamoate 25 MG CAPSULE PO PRN (01:44)
[2021-02-03] MEDS ORDERED: Dextrose Gel 15 GM/37.5 ML TUBE PO PRN ×2 (01:44)
[2021-02-03] MEDS ORDERED: D5% in Water 1,000 ML IVC PRN (01:44)
[2021-02-03] MEDS ORDERED: Ondansetron ODT 4 MG TAB.RAPDIS PO PRN (01:44)
[2021-02-03] MEDS ORDERED: Naloxone 0.4 MG/ML INJ IVP PRN (01:44)
[2021-02-03] MEDS ORDERED: *HR* Dextrose 50 % in Water (Vial) 50 ML VIAL IVP PRN (01:44)
[2021-02-03] MEDS ORDERED: Ipratropium/Albuterol Neb 3 ML IH PRN (01:56)
[2021-02-03] MEDS ORDERED: Furosemide 20 MG/2 ML VIAL IVP ONE (01:57)
[2021-02-03] MEDS: *HR* OxyCODONE ER (12 HR) 40 MG TABLET PO SCH ×2 (04:26→17:15)
[2021-02-03] MEDS ORDERED: Ipratropium Neb 0.5 MG NEBULIZER IH SCH (05:00)
[2021-02-03] MEDS ORDERED: predniSONE 20 MG TABLET PO SCH (08:00)
[2021-02-03 08:04] LABS: ABG Base Excess 5 mEq/L (-2 to 3); ABG HCO3 31 mEq/L (21-27); ABG Oxygen Saturation 91 % (95-98); ABG PCO2 52 mmHg (35-45); ABG PH 7.39 pH Units (7.32-7.45); ABG PO2 64 mmHg (85-104); ABG TCO2 33 mEq/L (20-26); Blood Gas Pressure Support 16 cm H2O
[2021-02-03] MEDS ORDERED: Bumetanide 1 MG TABLET PO SCH (09:00)
[2021-02-03] MEDS: Insulin LISPRO 300 UNITS/3 ML VIAL SUBQ SCH ×4 (11:00→20:43)
[2021-02-03] MEDS: Aspirin Enteric Coated 81 MG Tablet PO SCH (11:27)
[2021-02-03] MEDS: Cholecalciferol (D-3) 1,000 UNIT (25MCG) TABLET PO SCH (11:27)
[2021-02-03] MEDS: Famotidine 20 MG TABLET PO SCH ×2 (11:27→20:52)
[2021-02-03] MEDS: methocarbamoL 500 MG TABLET PO SCH ×2 (11:29→20:53)
[2021-02-03] MEDS: *HR* Glimepiride 2 MG TABLET PO SCH (11:29)
[2021-02-03] MEDS: Multivit/Ca/Min/Fe/FA 1 TAB TABLET PO SCH (11:29)
[2021-02-03] MEDS: *HR* Metformin 500 MG TABLET PO SCH ×2 (11:29→16:34)
[2021-02-03] MEDS: Folic Acid 1 MG TABLET PO SCH (11:29)
[2021-02-03] MEDS: Finasteride 5 MG TABLET PO SCH (11:30)
[2021-02-03] MEDS: Potassium Chloride Elixir 20 MEQ/15 ML UDC PO SCH ×2 (11:30→20:55)
[2021-02-03] MEDS: Sucralfate 1 GM TABLET PO SCH ×2 (11:30→16:34)
[2021-02-03] MEDS: Gabapentin 300 MG CAPSULE PO SCH ×4 (11:30→20:52)
[2021-02-03] MEDS: *HR* Enoxaparin 40 MG/0.4 ML SYRINGE SQ SCH (11:44)
[2021-02-03] MEDS: Ipratropium/Albuterol Neb 3 ML IH SCH ×4 (11:45→23:32)
[2021-02-03] MEDS: MethylPREDNISolone 40 MG/ML VIAL IVP SCH (15:43)
[2021-02-03] MEDS: cefTRIAXone 2,000 MG in 0.9 % Sodium Chloride Mini Bag 100 ML IVPB SCH (17:16)
[2021-02-03] MEDS: Mirtazapine 15 MG TABLET PO SCH (20:54)
[2021-02-03] MEDS: Furosemide 20 MG/2 ML VIAL IVP SCH (20:56)
[2021-02-03] MEDS: Budesonide/Formoterol 80/4.5 1 PUFF INH IH SCH (22:40)
[2021-02-04] MEDS: Azithromycin 500 MG in 0.9 % Sodium Chloride 250 ML IVPB SCH (00:01)
[2021-02-04] MEDS: MethylPREDNISolone 40 MG/ML VIAL IVP SCH ×2 (00:01→09:14)
[2021-02-04] MEDS: Ipratropium/Albuterol Neb 3 ML IH SCH ×6 (04:22→23:37)
[2021-02-04] MEDS: *HR* OxyCODONE ER (12 HR) 40 MG TABLET PO SCH ×2 (04:29→16:35)
[2021-02-04] MEDS: *HR* Enoxaparin 40 MG/0.4 ML SYRINGE SQ SCH (04:31)
[2021-02-04] MEDS: Budesonide/Formoterol 80/4.5 1 PUFF INH IH SCH ×2 (07:30→20:14)
[2021-02-04 08:03] LABS: Basophils % 0.1 %; Hematocrit 31.3 % (37.5-50.1); Hemoglobin 10.3 g/dL (12.9-16.9); Immature Granulocytes % 0.8 % (0-4); Lymphocytes # 0.8 K/mcL (0.6-4.6); Lymphocytes % 9.6 %; Mean Corpuscular HGB Conc 32.9 g/dL (31.6-35.5); Mean Corpuscular Hemoglobin 30.1 pg (28.0-33.3); Mean Corpuscular Volume 91.5 fL (83.0-100.0); Mean Platelet Volume 11.1 fL (9.4-12.4); Monocytes # 0.5 K/mcL (0.0-1.3); Monocytes % 6.4 %; Neutrophils # 6.9 K/mcL (1.6-8.9); Red Blood Count 3.42 M/mcL (4.19-5.50); Red Cell Distribution Width 15.2 % (11.5-14.5); Segmented Neutrophils % 83.1 %; White Blood Count 8.3 K/mcL (4.3-11.1)
[2021-02-04 08:06] LABS: BUN/Creatinine Ratio 32 (6-26); Blood Urea Nitrogen 31 mg/dL (6-20); Calcium 8.8 mg/dL (8.6-10.3); Carbon Dioxide 29 mEq/L (23-29); Chloride 100 mEq/L (98-107); Glucose 175 mg/dL (70-105); Osmolality,Calculated 295 (280-300); Potassium 4.1 mEq/L (3.5-5.1); Sodium 137 mEq/L (136-145); eGFR For African Americans > 60 (> 60); eGFR For Non-African Americans > 60 (> 60)
[2021-02-04 08:33] LABS: Platelet Count 93 K/mcL (140-400)
[2021-02-04] MEDS: Potassium Chloride Elixir 20 MEQ/15 ML UDC PO SCH ×2 (09:14→21:40)
[2021-02-04] MEDS: Furosemide 20 MG/2 ML VIAL IVP SCH (09:14)
[2021-02-04] MEDS: Famotidine 20 MG TABLET PO SCH ×2 (09:14→21:41)
[2021-02-04] MEDS: Aspirin Enteric Coated 81 MG Tablet PO SCH (09:14)
[2021-02-04] MEDS: Folic Acid 1 MG TABLET PO SCH (09:15)
[2021-02-04] MEDS: *HR* Metformin 500 MG TABLET PO SCH ×2 (09:15→16:34)
[2021-02-04] MEDS: Multivit/Ca/Min/Fe/FA 1 TAB TABLET PO SCH (09:15)
[2021-02-04] MEDS: Cholecalciferol (D-3) 1,000 UNIT (25MCG) TABLET PO SCH (09:15)
[2021-02-04] MEDS: Finasteride 5 MG TABLET PO SCH (09:15)
[2021-02-04] MEDS: Gabapentin 300 MG CAPSULE PO SCH ×3 (09:15→21:40)
[2021-02-04] MEDS: Sucralfate 1 GM TABLET PO SCH ×2 (09:16→16:35)
[2021-02-04] MEDS: methocarbamoL 500 MG TABLET PO SCH ×2 (09:16→21:42)
[2021-02-04] MEDS: *HR* Glimepiride 2 MG TABLET PO SCH (09:16)
[2021-02-04] MEDS: Insulin LISPRO 300 UNITS/3 ML VIAL SUBQ SCH ×4 (09:19→21:43)
[2021-02-04] MEDS: Bumetanide 1 MG TABLET PO SCH (16:35)
[2021-02-04] MEDS: cefTRIAXone 2,000 MG in 0.9 % Sodium Chloride Mini Bag 100 ML IVPB SCH (16:36)
[2021-02-04] MEDS: predniSONE 20 MG TABLET PO SCH (16:41)
[2021-02-04] MEDS: Mirtazapine 15 MG TABLET PO SCH (21:42)
[2021-02-05] MEDS: Azithromycin 500 MG in 0.9 % Sodium Chloride 250 ML IVPB SCH (02:14)
[2021-02-05] MEDS: Ipratropium/Albuterol Neb 3 ML IH SCH ×3 (03:54→11:58)
[2021-02-05] MEDS: *HR* OxyCODONE ER (12 HR) 40 MG TABLET PO SCH (05:40)
[2021-02-05] MEDS: *HR* Enoxaparin 40 MG/0.4 ML SYRINGE SQ SCH (05:41)
[2021-02-05 07:21] LABS: Basophils % 0.1 %; Hematocrit 31.8 % (37.5-50.1); Hemoglobin 10.4 g/dL (12.9-16.9); Lymphocytes # 1.1 K/mcL (0.6-4.6); Lymphocytes % 14.6 %; Mean Corpuscular HGB Conc 32.7 g/dL (31.6-35.5); Mean Corpuscular Hemoglobin 29.7 pg (28.0-33.3); Mean Corpuscular Volume 90.9 fL (83.0-100.0); Mean Platelet Volume 10.8 fL (9.4-12.4); Monocytes # 0.6 K/mcL (0.0-1.3); Monocytes % 8.4 %; Neutrophils # 5.8 K/mcL (1.6-8.9); Red Cell Distribution Width 15.2 % (11.5-14.5); Segmented Neutrophils % 75.9 %; White Blood Count 7.7 K/mcL (4.3-11.1)
[2021-02-05 07:32] LABS: Platelet Count 94 K/mcL (140-400)
[2021-02-05 07:47] LABS: BUN/Creatinine Ratio 38 (6-26); Blood Urea Nitrogen 30 mg/dL (6-20); Calcium 8.7 mg/dL (8.6-10.3); Carbon Dioxide 29 mEq/L (23-29); Chloride 101 mEq/L (98-107); Glucose 117 mg/dL (70-105); Osmolality,Calculated 289 (280-300); Potassium 3.7 mEq/L (3.5-5.1); Sodium 136 mEq/L (136-145); eGFR For African Americans > 60 (> 60); eGFR For Non-African Americans > 60 (> 60)
[2021-02-05] MEDS: Budesonide/Formoterol 80/4.5 1 PUFF INH IH SCH (07:49)
[2021-02-05] MEDS: *HR* Glimepiride 2 MG TABLET PO SCH (08:38)
[2021-02-05] MEDS: Sucralfate 1 GM TABLET PO SCH (08:38)
[2021-02-05] MEDS: Multivit/Ca/Min/Fe/FA 1 TAB TABLET PO SCH (08:38)
[2021-02-05] MEDS: Folic Acid 1 MG TABLET PO SCH (08:38)
[2021-02-05] MEDS: Gabapentin 300 MG CAPSULE PO SCH (08:38)
[2021-02-05] MEDS: Finasteride 5 MG TABLET PO SCH (08:38)
[2021-02-05] MEDS: Bumetanide 1 MG TABLET PO SCH (08:39)
[2021-02-05] MEDS: predniSONE 20 MG TABLET PO SCH (08:39)
[2021-02-05] MEDS: Cholecalciferol (D-3) 1,000 UNIT (25MCG) TABLET PO SCH (08:39)
[2021-02-05] MEDS: Famotidine 20 MG TABLET PO SCH (08:39)
[2021-02-05] MEDS: *HR* Metformin 500 MG TABLET PO SCH (08:40)
[2021-02-05] MEDS: Aspirin Enteric Coated 81 MG Tablet PO SCH (08:40)
[2021-02-05] MEDS: methocarbamoL 500 MG TABLET PO SCH (08:41)
[2021-02-05] MEDS: Potassium Chloride Elixir 20 MEQ/15 ML UDC PO SCH (08:49)
[2021-02-05] MEDS: Insulin LISPRO 300 UNITS/3 ML VIAL SUBQ SCH ×2 (08:49→12:04)
[2021-02-05 11:16] VITALS: BP 131/78
== END 2021-02-05 12:48 ==
LOC: EMEROOPIK 22:45 → INPPIK 22:45
PROVIDERS: ADMIT Student in an Organized Health Care Education/Training Program; ATTEND Family Medicine